=== PATIENT | female | born 1990 | race Hispanic/Latino ===

== ENCOUNTER 2020-05-29 23:13 | Day surgery (SDC) | payer BC ==
[2020-05-29 23:54] VITALS: BP 106/68; TEMP 97.9; BMI 20.6
--- NOTE | 2020-05-30 07:58 | PRG ---
DATE OF SERVICE: 05/29/2020 PRIMARY OB: Dr. Dayne Riddle. CHIEF COMPLAINT: Abdominal pain. HISTORY OF PRESENT ILLNESS: The patient is a 29-year-old G2, P1 female with an intrauterine at 37 weeks and 5 days, presenting with uterine contractions that began earlier in the day. She denies painful contractions and denies vaginal bleeding or leakage of fluid. The patient denies headache, chest pain, shortness of breath, nausea, vomiting, diarrhea, constipation, hip problems, knee problems, or muscle weakness. She denies any new rash. She denies change in discharge, urinary urgency or frequency. She denies any complications with this . PAST MEDICAL HISTORY: Negative. PAST SURGICAL HISTORY: Breast augmentation. ALLERGIES: NO KNOWN DRUG ALLERGIES. SOCIAL HISTORY: Denies drug, alcohol, or tobacco use. MEDICATIONS: vitamins. OB LABS: Blood type is O positive. Antibody screen is not available. HIV is nonreactive. GC and chlamydia negative. Diabetes screen is 101 and she is GBS negative. REVIEW OF SYSTEMS: Per HPI. PHYSICAL EXAMINATION: VITAL SIGNS: Blood pressure 106/68, heart rate of 90, and respiratory rate of 18. GENERAL: She appears to be in no acute distress. She is alert, oriented, cooperative, and pleasant to interact with. HEAD: Normocephalic and atraumatic. LUNGS: Clear to auscultation bilaterally. HEART: Regular rate and rhythm. ABDOMEN: Gravid, soft, and nontender. EXTREMITIES: Nontender and nonedematous. Cervical exam per nursing staff is 150 and -2 station. Repeat exam 2 hours later is unchanged. heart tracing shows the fetus with a baseline in the 130s with moderate long-term variability, positive 15 x 15 accelerations, no decelerations. Tocometer showing contractions irregular and not all felt by the patient. ASSESSMENT AND PLAN: The patient is a 29-year-old multiparous female with an intrauterine at 37 weeks and 5 days, presenting for evaluation of labor. The patient has no evidence of active labor at this time. Fetus has a category 1 tracing and reactive NST. The patient has been discharged home. She has an appointment the following morning at 11 o'clock with her primary OB, which we have encouraged that she keep. Job ID: [id number]
== END 2020-05-30 02:22 | disposition home or self-care (01) ==
LOC: L&D/OP 23:13
PROVIDERS: ATTEND Obstetrics & Gynecology
DX: O47.1 False labor at or after 37 completed weeks of gestation (principal); Z3A.37 37 weeks gestation of pregnancy
CPT/HCPCS: 99283